=== PATIENT | female | born 1970 | race Caucasian/White ===

== ENCOUNTER 2025-03-13 23:43 | Inpatient (IN) | payer BC, OTHER ==
[~2025-03-13] VITALS: Ht 170.2 cm; Wt 75.0 kg
[2025-03-14] VITALS (8 sets, daily range): BP systolic 120–139; BP diastolic 73–87; PULSE 68–77; RESP 15–20; TEMP 97.3–98.2; O2SAT 95–98
[2025-03-14] MEDS ORDERED: ONDANSETRON HCL 4 MG/2 ML VIAL IV ONE (00:15)
[2025-03-14] MEDS ORDERED: HYDROmorphone HCL 2 MG/ML VL/or syr IV ONE (00:15)
--- NOTE | 2025-03-14 00:23 | ED.PDOC ---
GI ASSESSMENT HPI Comments 54-year-old female who came to the ER for abdominal pain. Patient has been experiencing abdominal pain for the past day. Located of the right upper quadrant, sharp, stabbing, intermittent, progressively worsening, associated bouts of nausea and vomiting. 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 Family History Family History: Reviewed,noncontributory to illness Social History Smoker: Non-Smoker Alcohol: Denies ETOH Use Drugs: Denies Drug Use Lives In: Home Constitutional: denies: chills, diaphoresis, fatigue, fever, malaise, sweats, weakness, others EENTM: denies: blurred vision, double vision, ear bleeding, ear discharge, ear drainage, ear pain, ear ringing, eye pain, eye redness, hearing loss, mouth pain, mouth swelling, nasal discharge, nose bleeding, nose congestion, nose pain, photophobia, tearing, throat pain, throat swelling, voice changes, others Respiratory: denies: cough, hemoptysis, orthopnea, SOB at rest, shortness of breath, SOB with excertion, stridor, wheezing, others Cardiovascular: denies: chest pain, dizzy spells, diaphoresis, Dyspnea on exertion, edema, irregular heart beat, left arm pain, lightheadedness, palpitations, PND, syncope, others Gastrointestinal: reports: abdominal pain, nausea, vomiting; denies: abdomen distended, blood streaked bowels, constipated, diarrhea, dysphagia, difficulty swallowing, hematemesis, melena, poor appetite, poor fluid intake, rectal bleeding, rectal pain, others Genitourinary: denies: abnormal vagina bleeding, burning, dyspareunia, dysuria, flank pain, frequency, hematuria, incontinence, pain, , vagina discharge, urgency, others Neurological: denies: dizziness, fainting, headache, left sided numbness, left sided weakness, numbness, paresthesia, pre-existing deficit, right sided numbness, right sided weakness, seizure, speech problems, tingling, tremors, weakness, others Musculoskeletal: denies: back pain, gout, joint pain, joint swelling, muscle pain, muscle stiffness, neck pain, others Integumetry: denies: bruises, change in color, change in hair/nails, dryness, laceration, lesions, lumps, rash, wounds, others Allergic/Immunocompromised: denies: Difficulty Healing, Frequent Infections, Hives, Itching, others Hematologic/Lymphatic: denies: anemia, blood clots, easy bleeding, easy bruising, swollen glands, others Endocrine: denies: excessive hunger, excessive sweating, excessive thirst, excessive urination, flushing, intolerance to cold, intolerance to heat, unexplained weight gain, unexplained weight loss, others Psychiatric: denies: anxiety, bipolar disorder, depression, hopeless, panic disorder, schizophrenia, sleepless, suicidal, others Physical Exam General Appearance: No Apparent Distress, Normal HEENT: Normal ENT Inspection, Pharynx Normal, TMs Normal Neck: Full Range of Motion, Non-Tender, Normal, Normal Inspection Respiratory: Chest Non-Tender, Lungs Clear, No Accessory Muscle Use, No Respiratory Distress, Normal Breath Sounds Cardiovascular: No Edema, No JVD, No Murmur, No Gallop, Normal Peripheral Pulses, Regular Rate/Rhythm Breast Exam: Deferred Gastrointestinal: No Organomegaly, No Pulsatile Mass, Normal Bowel Sounds, RUQ, Soft, Tenderness Genitalia: Deferred Pelvic: Deferred Rectal: Deferred Extremities: No calf tenderness, Normal capillary refill, Normal inspection, Normal range of motion, Non-tender, No pedal edema Musculoskeletal : Apperance: Normal Neurologic: Alert, crane assembler II-XII nml as Tested, No Motor Deficits, Normal Affect, Normal Mood, No Sensory Deficits Cerebellar Function: Normal Reflexes: Normal Skin: Dry, Normal Color, Warm Lymphatic: No Adenopathy Was a procedure done? Was a procedure done?: No GI differential Dx Differential Diagnosis: Cholecystitis, Constipation, Diverticular disease, Gastritis/PUD, Gastroenteritis, Hepatitis, Pancreatitis, UTI, Urolithiasis X-Ray, Labs, Meds, VS Vital Signs Date Time Temp Pulse Resp B/P (MAP) Pulse Ox O2 Delivery O2 Flow Rate FiO2 03/13/25 23:45 96.7 73 20 142/88 98 96.7 Lab Test 03/14/25 00:20 03/13/25 23:55 Range/Units White Blood Count 5.5 4.4-10.8 10^3/uL Red Blood Count 4.17 4.0-5.20 10^6/uL Hemoglobin 13.9 12.2-16.2 g/dL Hematocrit 39.5 36.0-46.0 % Mean Corpuscular Volume 94.8 80.0-100.0 fL Mean Corpuscular Hemoglobin 33.3 H 28.0-32.0 pg Mean Corpuscular Hemoglobin Concent 35.2 32.0-36.0 g/dL Red Cell Distribution Width 12.7 11.8-14.3 % Platelet Count 201 140-450 10^3/uL Mean Platelet Volume 6.1 L 6.9-10.8 fL Neutrophils (%) (Auto) 71.0 37.0-80.0 % Lymphocytes (%) (Auto) 17.8 10.0-50.0 % Monocytes (%) (Auto) 8.4 0.0-12.0 % Eosinophils (%) (Auto) 2.3 0.0-7.0 % Basophils (%) (Auto) 0.5 0.0-2.0 % Neutrophils # (Auto) 3.9 1.6-8.6 10 ^3/uL Lymphocytes # (Auto) 1.0 0.4-5.4 10 ^3/uL Monocytes # (Auto) 0.5 0-1.3 10 ^3/uL Eosinophils # (Auto) 0.1 0-0.8 10 ^3/uL Basophils # (Auto) 0 0-0.2 10 ^3/uL Nucleated Red Blood Cells 0.0 % Sodium Level 143 136-145 mmol/L Potassium Level 4.0 3.5-5.1 mmol/L Chloride Level 104 98-107 mmol/L Carbon Dioxide Level 28 20-31 mmol/L Anion Gap 11 5-15 Blood Urea Nitrogen 6 L 9-23 mg/dL Creatinine 0.65 0.550-1.02 mg/dL Glomerular Filtration Rate Calc 103 >90 mL/min BUN/Creatinine Ratio 9.2 L 10.0-20.0 Serum Glucose 169 H 74-106 mg/dL Calcium Level 9.2 8.7-10.4 mg/dL Total Bilirubin 1.0 0.2-1.0 mg/dL Aspartate Amino Transferase (AST) 494 H 13-40 U/L Alanine Aminotransferase (ALT) 899 H 7-40 U/L Alkaline Phosphatase 359 H 46-116 U/L Total Protein 6.7 5.7-8.2 g/dL Albumin 4.0 3.2-4.8 g/dL Lipase 46 12-53 U/L Urine Color Yellow Yellow Urine Clarity Clear Clear Urine pH 7.0 5.0-9.0 Urine Specific [place] 1.015 1.001-1.035 Urine Protein Negative Negative Urine Ketones Negative Negative Urine Blood 2+ H Negative /uL Urine Nitrite Negative Negative Urine Bilirubin Negative Negative Urine Urobilinogen Normal Negative mg/dL Urine Leukocyte Esterase Negative Negative /uL Urine RBC 13 0 - 4 /hpf Urine Microscopic WBC < 1 0-5 /HPF Urine Squamous Epithelial Cells Few <5 /hpf Urine Bacteria Few H None Seen /hpf Urine Hyaline Casts Few 0 - 2 /lpf Urine Mucus Few None Seen Urine Yeast (Budding) Occasional None Seen /hpf Urine Glucose Normal Normal mg/dL Time of 1ST Reevaluation: 00:20 Reevaluation 1ST: Unchanged Patient Education/Counseling: Diagnosis, Treatment Family Education/Counseling: Diagnosis, Treatment SEPSIS Sepsis Screen Date sepsis recognized/suspect: Mar 13, 2025 Time Sepsis recognized/suspect: 2349 Recent Procedure: No On Antibiotic Therapy: No Respiratory Rate >20: No Heart Rate >90: No Temp<36 C (96.8 F) or >38.3 C: No SBP <90 or MAP <65 mmHG: No New Acute Mental Status Change: No Is the patient on CPAP, BIPAP,: No Physician Orders Gallbladder (03/14/25 00:03) Piperacillin-Tazob 3.375gm (Zosyn 3.375g (03/14/25 03:00) Vital Signs Date Time Temp Pulse Resp B/P (MAP) Pulse Ox O2 Delivery O2 Flow Rate FiO2 03/13/25 23:45 96.7 73 20 142/88 98 96.7 Laboratory Tests Test 03/14/25 00:20 White Blood Count 5.5 10^3/uL (4.4-10.8) Departure 1 Departure Time of Disposition: 03:02 Impression: Primary Impression: Acute cholecystitis Disposition: ADMITTED INPATIENT Admit to: Med Surg Condition: Guarded Discharged With: Self Comments 54-year-old female with a severe right upper quadrant pain. On lab review her LFTs are quite elevated. Total bilirubin is okay at 1. AST is high at 494. ALT is high at 899. Alk-phos is high at 359. Ultrasound of the gallbladder shows gallstones and signs of acute cholecystitis. I ordered IV Zosyn antibiotics. Patient got Dilaudid for pain. Patient will need to be admitted for supportive care and further workup. Critical Care Note Critical Care Time?: Yes (35 min-critical care time only) Critical care comment: Total critical care time: Approximately 36 minutes Due to a high probability of clinically significant, life threatening deterioration, the patient required my highest level of preparedness to intervene emergently and I personally spent this critical care time directly and personally managing the patient. This critical care time included obtaining a history; examining the patient; pulse oximetry; ordering and review of studies; arranging urgent treatment with development of a management plan; evaluation of patient's response to treatment; frequent reassessment; and, discussions with other providers. This critical care time was performed to assess and manage the high probability of imminent, life-threatening deterioration that could result in multi-organ failure. It was exclusive of separately billable procedures and treating other patients. Stability Stability form required: No Heart Score Heart Score: Heart Score Response (Comments) Value History N/A 0 EKG N/A 0 Age N/A 0 Risk Factors N/A 0 Troponin N/A 0 Total 0 I personally scribed for SERGEI SLOAN MD ([email or web address]) on 03/14/25 at 00:23. Electronically submitted by Natalio Dennison ([email or web address]). SERGEI SLOAN MD Mar 14, 2025 00:23
[2025-03-14 00:39] LABS: Hematocrit 39.5 % (36.0-46.0); Hemoglobin 13.9 g/dL (12.2-16.2); Mean Corpuscular Hemoglobin 33.3 pg (28.0-32.0); Mean Corpuscular Volume 94.8 fL (80.0-100.0); Nucleated Red Blood Cells % 0.0 %
[2025-03-14 01:07] LABS: Albumin 4.0 g/dL (3.2-4.8); Anion Gap 11 (5-15); BUN/Creatinine Ratio 9.2 (10.0-20.0); Bilirubin, Total 1.0 mg/dL (0.2-1.0); Calcium 9.2 mg/dL (8.7-10.4); Carbon Dioxide 28 mmol/L (20-31); Chloride 104 mmol/L (98-107); Lipase 46 U/L (12-53); Potassium 4.0 mmol/L (3.5-5.1); Sodium 143 mmol/L (136-145); Total Protein 6.7 g/dL (5.7-8.2)
--- NOTE | 2025-03-14 01:08 | DVH ---
INDICATION: RUQ pain TECHNIQUE: Multiple real-time sonographic images were obtained of the right upper quadrant. COMPARISON: None FINDINGS: Liver is enlarged measuring 19.3 cm with moderate diffuse fatty infiltration. There is no intrahepati c or extrahepatic ductal dilatation. CBD is dilated measuring 1.2 cm. Gallstone in the gallbladder. Borderline gallbladder distention. Gallbladder wall is mildly thickened measuring 0.5 cm. No surrounding edema. Sonographic leos's sign is positive. The right kidney measures 10.0 cm. The right kidney is normal in contour, size, and shape. The ech ogenicity is normal. There is no hydronephrosis. The pancreas is not well visualized due to overlying bowel gas. IMPRESSION: CBD is dilated. MRCP would be beneficial to exclude a distal obstructing calculus. Gallstones with gallbladder distension and borderline gallbladder wall thickening but no significant surrounding edema. This could represent early acute cholecystitis. Close follow-up recommended.
[2025-03-14 01:09] LABS: Alanine Aminotransferase 899 U/L (7-40); Alkaline Phosphatase 359 U/L (46-116); Blood Urea Nitrogen 6 mg/dL (9-23); Glucose 169 mg/dL (74-106)
[2025-03-14 02:16] LABS: Urine Budding Yeast OCCASIONAL /hpf (None Seen); Urine Protein, UAD Negative (Negative)
[2025-03-14] MEDS ORDERED: NITROGLYCERIN 0.4 MG SL TAB SL PRN (04:45)
[2025-03-14] MEDS ORDERED: MORPHINE SULFATE INJ 2 MG/ml SYRG IV PRN (04:45)
[2025-03-14] MEDS ORDERED: HYDROcodone-ACET 5/325MG TAB PO PRN (04:45)
[2025-03-14] MEDS ORDERED: ACETAMINOPHEN 325 MG TAB PO PRN (04:45)
[2025-03-14] MEDS ORDERED: HYDROmorphone HCL 2 MG/ML VL/or syr IV PRN (04:45)
--- NOTE | 2025-03-14 04:45 | DVHHP2 ---
History of Present Illness Reason for Visit: Acute cholecystitis History of Present Illness The patient is a 54-year-old female who denies past medical history presented to [facility] ED with complaint of abdominal pain. Patient reports she has been experiencing abdominal pain, localized to the right upper quadrant, sharp and stabbing in nature, intermittent, progressively worsening, associated with bouts of nausea and vomiting. Patient was seen and evaluated in the ED, laboratory data shows WBC 5.5, platelets 201, sodium 143, potassium 4.0, BUN 6, creatinine 0.65, GFR 103, glucose 189, calcium 9.2, lipase 42, AST 494, ALT 899, alkaline phos 359, blood pressure 142/88, heart rate 72, temperature 96.7 F, O2 saturation 98% on room air. Gallbladder ultrasound revealing gallstones with gallbladder distention and borderline gallbladder wall thickening but no significant surrounding edema; this could represent early acute cholecystitis; CBD is dilated, MRCP will be beneficial to exclude a distal obstructing calculus. Please see medication orders section in the computer. On my assessment, patient denied chest pain, no headache, dizziness, diaphoresis, shortness of breaths, no diarrhea, nausea or vomiting at this moment, no fever, chills. Patient was admitted for further evaluation and medical management. Past Medical History Denies past medical history Past Surgical History Family History Reviewed, noncontributory to the management of this case. Past Social History The patient lives at home, denies smoking, alcohol or illicit drugs abuse. Review of Systems Constitutional: No: Fever, Chills, Sweats, Weakness, Malaise, Other Eyes: No: Pain, Vision change, Conjunctivae inflammation, Eyelid inflammation, Other, Redness ENT: No: Ear pain, Ear discharge, Nose pain, Nose discharge, Nose congestion, Mouth pain, Mouth swelling, Throat pain, Throat swelling, Other Respiratory: No: Cough, Dry, Shortness of breath, SOB with excertion, Wheezing, Hemoptysis, Pleuritic Pain, Sputum, Wheezing, Other Cardiovascular: No: Chest Pain, Palpitations, Orthopnea, Paroxysmal Noc. Dyspnea, Edema, Lt Headedness, Other Gastrointestinal: Nausea, Vomiting, Abdominal Pain; No: Diarrhea, Constipation, Melena, Hematochezia, Other Genitourinary: No Dysuria, No Frequency, No Incontinence, No Hematuria, No Retention, No Other Musculoskeletal: No: other, neck pain, shoulder pain, arm pain, back pain, hand pain, leg pain, foot pain Skin: No: Rash, Lesions, Jaundice, Bruising, Other Neurological: No: Weakness, Numbness, Incoordination, Change in speech, Confusion, Seizures, Other Allergies: Coded Allergies: Penicillins (Verified Allergy, Unknown, 03/13/25) Medications Current Medications Medications Dose Ordered Sig/Leigh Route Start Time Stop Time Status Last Admin Dose Admin Hydromorphone HCl 0.5 mg Q4HPRN PRN IV 03/14/25 04:45 UNV Metronidazole 100 ml @ 100 mls/hr Q8HR IV 03/14/25 06:00 UNV Sodium Chloride 10 ml Q8HR IV 03/14/25 06:00 UNV Acetaminophen/ Hydrocodone Bitart 1 tab Q4HP PRN PO 03/14/25 04:45 UNV Ondansetron HCl 4 mg Q4HP PRN IV 03/14/25 04:45 UNV Acetaminophen 650 mg Q6HP PRN PO 03/14/25 04:45 UNV Nitroglycerin 0.4 mg Q5MINP PRN SL 03/14/25 04:45 UNV Morphine Sulfate 2 mg Q30M PRN IV 03/14/25 04:45 UNV Exam Vital Signs Vital Signs Date Time Temp Pulse Resp B/P (MAP) Pulse Ox O2 Delivery O2 Flow Rate FiO2 03/13/25 23:45 96.7 73 20 142/88 98 96.7 General Appearance: Alert, Oriented X3, Cooperative, No acute distress HEENT: Atraumatic, PERRLA, EOMI, Mucous membr. moist/pink Respiratory: Clear to auscultation, Normal air movement Cardiovascular: Regular rate, Normal S1, Normal S2, No murmurs Abdominal: Normal bowel sounds, Soft, No hepatospenomegaly, No masses, Other (Reports tenderness) Extremities: No clubbing, No cyanosis, No edema, Normal pulses, No tenderness/swelling Skin: No rashes, No breakdown, No significant lesion Neuro: Normal gait, Normal speech, Strength at 5/5 X4 ext, Normal tone, Sensation intact, Cranial nerves 3-12 NL, Reflexes 2+ Psych/Mental Status: Mental status NL, Mood NL Labs/Xrays Labs Test 03/14/25 00:20 03/13/25 23:55 Range/Units White Blood Count 5.5 4.4-10.8 10^3/uL Red Blood Count 4.17 4.0-5.20 10^6/uL Hemoglobin 13.9 12.2-16.2 g/dL Hematocrit 39.5 36.0-46.0 % Mean Corpuscular Volume 94.8 80.0-100.0 fL Mean Corpuscular Hemoglobin 33.3 H 28.0-32.0 pg Mean Corpuscular Hemoglobin Concent 35.2 32.0-36.0 g/dL Red Cell Distribution Width 12.7 11.8-14.3 % Platelet Count 201 140-450 10^3/uL Mean Platelet Volume 6.1 L 6.9-10.8 fL Neutrophils (%) (Auto) 71.0 37.0-80.0 % Lymphocytes (%) (Auto) 17.8 10.0-50.0 % Monocytes (%) (Auto) 8.4 0.0-12.0 % Eosinophils (%) (Auto) 2.3 0.0-7.0 % Basophils (%) (Auto) 0.5 0.0-2.0 % Neutrophils # (Auto) 3.9 1.6-8.6 10 ^3/uL Lymphocytes # (Auto) 1.0 0.4-5.4 10 ^3/uL Monocytes # (Auto) 0.5 0-1.3 10 ^3/uL Eosinophils # (Auto) 0.1 0-0.8 10 ^3/uL Basophils # (Auto) 0 0-0.2 10 ^3/uL Nucleated Red Blood Cells 0.0 % Sodium Level 143 136-145 mmol/L Potassium Level 4.0 3.5-5.1 mmol/L Chloride Level 104 98-107 mmol/L Carbon Dioxide Level 28 20-31 mmol/L Anion Gap 11 5-15 Blood Urea Nitrogen 6 L 9-23 mg/dL Creatinine 0.65 0.550-1.02 mg/dL Glomerular Filtration Rate Calc 103 >90 mL/min BUN/Creatinine Ratio 9.2 L 10.0-20.0 Serum Glucose 169 H 74-106 mg/dL Calcium Level 9.2 8.7-10.4 mg/dL Total Bilirubin 1.0 0.2-1.0 mg/dL Aspartate Amino Transferase (AST) 494 H 13-40 U/L Alanine Aminotransferase (ALT) 899 H 7-40 U/L Alkaline Phosphatase 359 H 46-116 U/L Total Protein 6.7 5.7-8.2 g/dL Albumin 4.0 3.2-4.8 g/dL Lipase 46 12-53 U/L Urine Color Yellow Yellow Urine Clarity Clear Clear Urine pH 7.0 5.0-9.0 Urine Specific [place] 1.015 1.001-1.035 Urine Protein Negative Negative Urine Ketones Negative Negative Urine Blood 2+ H Negative /uL Urine Nitrite Negative Negative Urine Bilirubin Negative Negative Urine Urobilinogen Normal Negative mg/dL Urine Leukocyte Esterase Negative Negative /uL Urine RBC 13 0 - 4 /hpf Urine Microscopic WBC < 1 0-5 /HPF Urine Squamous Epithelial Cells Few <5 /hpf Urine Bacteria Few H None Seen /hpf Urine Hyaline Casts Few 0 - 2 /lpf Urine Mucus Few None Seen Urine Yeast (Budding) Occasional None Seen /hpf Urine Glucose Normal Normal mg/dL PATIENT: COLETTE CARRENO ACCT: [id number] UNIT: [id number] : 1970 LOC: ER ROOM / BED: / AGE / SEX: 54 / F ADM STATUS: REG ER SERVICE 0003 ORDERING PHYSICIAN: SERGEI SLOAN MD PROCEDURE(s): GBUS - GALLBLADDER REASON: RUQ pain ORDER NUMBER(s): [id number], ACCESSION NUMBER(s): [id number] INDICATION: RUQ pain TECHNIQUE: Multiple real-time sonographic images were obtained of the right upper quadrant. COMPARISON: None FINDINGS: Liver is enlarged measuring 19.3 cm with moderate diffuse fatty infiltration. There is no intrahepatic or extrahepatic ductal dilatation. CBD is dilated measuring 1.2 cm. Gallstone in the gallbladder. Borderline gallbladder distention. Gallbladder wall is mildly thickened measuring 0.5 cm. No surrounding edema. Sonographic leos's sign is positive. The right kidney measures 10.0 cm. The right kidney is normal in contour, size, and shape. The echogenicity is normal. There is no hydronephrosis. The pancreas is not well visualized due to overlying bowel gas. IMPRESSION: CBD is dilated. MRCP would be beneficial to exclude a distal obstructing calculus. Gallstones with gallbladder distension and borderline gallbladder wall thickening but no significant surrounding edema. This could represent early acute cholecystitis. Close follow-up recommended. SEPSIS Sepsis Screen Date sepsis recognized/suspect: Mar 13, 2025 Time Sepsis recognized/suspect: 2349 Recent Procedure: No On Antibiotic Therapy: No Respiratory Rate >20: No Heart Rate >90: No Temp<36 C (96.8 F) or >38.3 C: No SBP <90 or MAP <65 mmHG: No New Acute Mental Status Change: No Is the patient on CPAP, BIPAP,: No Physician Orders Gallbladder (03/14/25 00:03) * Gi Dvh Topper Packer (03/14/25 04:35) Complete Blood Count (03/14/25 04:35) Comprehensive Metabolic Panel (03/14/25 04:35) Hydromorphone Injection (Dilaudid Inject (03/14/25 04:45) Metronidazole 500mg/100ml (Flagyl 500mg/ (03/14/25 06:00) Hemoglobin A1c (03/14/25 04:35) * Surgical Consult (03/14/25 ) Admit (03/14/25 04:35) Allergies (03/14/25 04:35) Code Status (03/14/25 04:35) Sodium Chloride Lock (Saline Lock Ns) (03/14/25 06:00) Oxygen Per Hour (03/14/25 04:35) Hydrocodone-Acet 5/325mg Tab ([place] 5/32 (03/14/25 04:45) Ondansetron Hcl (Zofran) (03/14/25 04:45) Complete Blood Count (03/15/25 04:00) Comprehensive Metabolic Panel (03/15/25 04:00) Condition: Serious (03/14/25 04:35) Acetaminophen Tablet (Tylenol Tablet) (03/14/25 04:45) Clear Liq Diet (03/14/25 Breakfast) Bedrest With Bathroom Privileg (03/14/25 04:35) Sequential Compression Device (03/14/25 ) Nitroglycerin Sublingual (Ntrostat Subli (03/14/25 04:45) Morphine Sulfate Injection (03/14/25 04:45) Notify Md Of Changes From Base (03/14/25 04:35) Emergency Dysrhythmia Protocol (03/14/25 04:35) Oxygen By Nasal Cannula (03/14/25 04:35) Vital Signs Date Time Temp Pulse Resp B/P (MAP) Pulse Ox O2 Delivery O2 Flow Rate FiO2 03/13/25 23:45 96.7 73 20 142/88 98 96.7 Laboratory Tests Test 03/14/25 00:20 White Blood Count 5.5 10^3/uL (4.4-10.8) Assessment/Plan Assessment/Plan Acute cholecystitis Hyperglycemia Elevated liver enzymes Acute abdominal pain Intractable nausea and vomiting Plan 1. Admit to med surge unit 2. Breathing treatment 3. Pain control management 4. IV antibiotic management 5. Management of fluids and electrolytes 6. Consultation for GI/surgery 7. Diagnostic test gallbladder ultrasound 8. DVT prophylaxis-on SCDs 9. Repeat labs CBC, CMP in a.m. 10. Continue with current medical management 11. Treatment plan discussed with patient/ and RN. Patient/ verbalized understanding. Plan discussed with: Patient, Spouse ( at bedside), Other (RN) My Orders Orders - WESTON CACERES DNP Procedure Category Date Status Time * Gi Dvh Topper Packer CONS 03/14/25 Transmitted 04:35 Complete Blood Count LAB 03/14/25 Logged 04:35 Comprehensive LAB 03/14/25 Logged Metabolic Panel 04:35 Hydromorphone PHA 03/14/25 Logged Injection (Dilaudid 04:45 Metronidazole PHA 03/14/25 Logged 500mg/100ml (Flagyl 06:00 Hemoglobin A1c LAB 03/14/25 Logged 04:35 * Surgical Consult CONS 03/14/25 Transmitted Admit ADMIT 03/14/25 Transmitted 04:35 Allergies RONNELL 03/14/25 In Process 04:35 Code Status CODE 03/14/25 Transmitted 04:35 Sodium Chloride Lock PHA 03/14/25 Logged (Saline Lock Ns) 06:00 Oxygen Per Hour RT 03/14/25 Transmitted 04:35 Hydrocodone-Acet PHA 03/14/25 Logged 5/325mg Tab ([place] 04:45 Ondansetron Hcl PHA 03/14/25 Logged (Zofran) 04:45 Complete Blood Count LAB 03/15/25 Verified 04:00 Comprehensive LAB 03/15/25 Verified Metabolic Panel 04:00 Condition: Serious RONNELL 03/14/25 In Process 04:35 Acetaminophen Tablet PHA 03/14/25 Logged (Tylenol Tablet) 04:45 Clear Liq Diet DIET 03/14/25 Transmitted Breakfast Bedrest With Bathroom [facility] 03/14/25 In Process Privileg 04:35 Sequential [facility] 03/14/25 In Process Compression Device Nitroglycerin [facility] 03/14/25 Logged Sublingual (Ntrostat 04:45 Morphine Sulfate [facility] 03/14/25 Logged Injection 04:45 Notify Md Of Changes [facility] 03/14/25 In Process From Base 04:35 Emergency Dysrhythmia [facility] 03/14/25 In Process Protocol 04:35 Oxygen By Nasal RT 03/14/25 Transmitted Cannula 04:35 Problem List: (1) Acute cholecystitis (2) Hyperglycemia (3) Elevated liver enzymes (4) Acute abdominal pain (5) Intractable nausea and vomiting Date of Service: Mar 14, 2025 Billing Provider: WESTON CACERES DNP Common Visit Codes: [id number] INP/OBS CARE (HIGH) WESTON CACERES DNP Mar 14, 2025 04:45
[2025-03-14] MEDS: SODIUM CHLOR 0.9% PF (SALINE LOCK) 10ML VIAL/SYR IV SCH (06:25)
[2025-03-14] MEDS: PIPERACILLIN-TAZOB 3.375GM 100 ML IV ONE (06:25)
[2025-03-14] MEDS: SODIUM CHLORIDE 0.9% 1,000 ML IVB ONE (06:51)
[2025-03-14] MEDS ORDERED: THYR120T PO (06:54)
[2025-03-14] MEDS ORDERED: VALS320T PO (06:54)
[2025-03-14] MEDS ORDERED: ESCI10TA PO (06:54)
[2025-03-14 08:03] LABS: Hematocrit 41.9 % (36.0-46.0); Hemoglobin 14.5 g/dL (12.2-16.2); Mean Corpuscular Hemoglobin 33.1 pg (28.0-32.0); Mean Corpuscular Volume 95.5 fL (80.0-100.0); Nucleated Red Blood Cells % 0.1 %
[2025-03-14 08:20] LABS: Alanine Aminotransferase 903 U/L (7-40); Albumin 4.0 g/dL (3.2-4.8); Alkaline Phosphatase 434 U/L (46-116); Anion Gap 12 (5-15); BUN/Creatinine Ratio 19.4 (10.0-20.0); Blood Urea Nitrogen 12 mg/dL (9-23); Calcium 8.7 mg/dL (8.7-10.4); Carbon Dioxide 27 mmol/L (20-31); Chloride 106 mmol/L (98-107); Glucose 91 mg/dL (74-106); Potassium 3.9 mmol/L (3.5-5.1); Sodium 145 mmol/L (136-145); Total Protein 6.6 g/dL (5.7-8.2)
[2025-03-14 08:21] LABS: Bilirubin, Total 1.2 mg/dL (0.2-1.0)
--- NOTE | 2025-03-14 10:23 | DVHINCON2 ---
Date of service: Mar 14, 2025 Allergies: Coded Allergies: Penicillins (Verified Allergy, Unknown, 03/13/25) Home Meds Reported Medications Escitalopram Oxalate (Lexapro) 10 Mg Tab, 1 TAB PO DAILY, #90 TAB 3 Refills 03/14/25 Thyroid ([place] Thyroid) 120 Mg Tab, 120 MG PO, TAB 03/14/25 Valsartan (Diovan) Unknown Strength Tab, PO DAILY, #90 TAB 3 Refills 03/14/25 Current Medications Current Medications Medications (Trade) Dose Ordered Sig/Leigh Route PRN Reason Start Time Stop Time Status Last Admin Hydromorphone HCl (Dilaudid Injection) 0.5 mg Q4HPRN PRN IV SEVERE PAIN (7-10 PAIN SCALE) 03/14/25 04:45 Metronidazole 100 ml @ 100 mls/hr Q8HR IV 03/14/25 06:00 03/14/25 06:25 Sodium Chloride (Saline Lock Ns) 10 ml Q8HR IV 03/14/25 06:00 03/14/25 06:25 Acetaminophen/ Hydrocodone Bitart ([place] 5/325MG Tab) 1 tab Q4HP PRN PO MODERATE PAIN (4-6 PAIN SCALE) 03/14/25 04:45 Ondansetron HCl (Zofran) 4 mg Q4HP PRN IV NAUSEA / VOMITING 03/14/25 04:45 Acetaminophen (Tylenol Tablet) 650 mg Q6HP PRN PO PAIN SCALE 1-3 OR TEMP>100.4 03/14/25 04:45 Nitroglycerin (Ntrostat Sublingual) 0.4 mg Q5MINP PRN SL FOR CHEST PAIN 03/14/25 04:45 Morphine Sulfate 2 mg Q30M PRN IV FOR CHEST PAIN 03/14/25 04:45 Potassium Chloride/Dextrose/ Sod Cl 1,000 ml @ 120 mls/hr Q8H20M IV 03/14/25 10:15 UNV Vital Signs Vital Signs Date Time Temp Pulse Resp B/P (MAP) Pulse Ox O2 Delivery O2 Flow Rate FiO2 03/14/25 09:11 97.8 77 18 134/76 (95) 98 97.8 03/14/25 08:00 Room Air* 0 21 Labs/Diagnostic Data Labs Test 03/14/25 07:30 03/14/25 00:20 03/13/25 23:55 Range/Units White Blood Count 5.3 4.4-10.8 10^3/uL Red Blood Count 4.38 4.0-5.20 10^6/uL Hemoglobin 14.5 12.2-16.2 g/dL Hematocrit 41.9 36.0-46.0 % Mean Corpuscular Volume 95.5 80.0-100.0 fL Mean Corpuscular Hemoglobin 33.1 H 28.0-32.0 pg Mean Corpuscular Hemoglobin Concent 34.7 32.0-36.0 g/dL Red Cell Distribution Width 12.8 11.8-14.3 % Platelet Count 180 140-450 10^3/uL Mean Platelet Volume 6.4 L 6.9-10.8 fL Neutrophils (%) (Auto) 70.9 37.0-80.0 % Lymphocytes (%) (Auto) 15.8 10.0-50.0 % Monocytes (%) (Auto) 10.9 0.0-12.0 % Eosinophils (%) (Auto) 1.8 0.0-7.0 % Basophils (%) (Auto) 0.6 0.0-2.0 % Neutrophils # (Auto) 3.8 1.6-8.6 10 ^3/uL Lymphocytes # (Auto) 0.8 0.4-5.4 10 ^3/uL Monocytes # (Auto) 0.6 0-1.3 10 ^3/uL Eosinophils # (Auto) 0.1 0-0.8 10 ^3/uL Basophils # (Auto) 0 0-0.2 10 ^3/uL Nucleated Red Blood Cells 0.1 % Sodium Level 145 136-145 mmol/L Potassium Level 3.9 3.5-5.1 mmol/L Chloride Level 106 98-107 mmol/L Carbon Dioxide Level 27 20-31 mmol/L Anion Gap 12 5-15 Blood Urea Nitrogen 12 9-23 mg/dL Creatinine 0.62 0.550-1.02 mg/dL Glomerular Filtration Rate Calc 104 >90 mL/min BUN/Creatinine Ratio 19.4 10.0-20.0 Serum Glucose 91 74-106 mg/dL Calcium Level 8.7 8.7-10.4 mg/dL Total Bilirubin 1.2 H 0.2-1.0 mg/dL Aspartate Amino Transferase (AST) 449 H 13-40 U/L Alanine Aminotransferase (ALT) 903 H 7-40 U/L Alkaline Phosphatase 434 H 46-116 U/L Total Protein 6.6 5.7-8.2 g/dL Albumin 4.0 3.2-4.8 g/dL Hemoglobin A1c 4.8 <5.7 % A1C Lipase 46 12-53 U/L Urine Color Yellow Yellow Urine Clarity Clear Clear Urine pH 7.0 5.0-9.0 Urine Specific [place] 1.015 1.001-1.035 Urine Protein Negative Negative Urine Ketones Negative Negative Urine Blood 2+ H Negative /uL Urine Nitrite Negative Negative Urine Bilirubin Negative Negative Urine Urobilinogen Normal Negative mg/dL Urine Leukocyte Esterase Negative Negative /uL Urine RBC 13 0 - 4 /hpf Urine Microscopic WBC < 1 0-5 /HPF Urine Squamous Epithelial Cells Few <5 /hpf Urine Bacteria Few H None Seen /hpf Urine Hyaline Casts Few 0 - 2 /lpf Urine Mucus Few None Seen Urine Yeast (Budding) Occasional None Seen /hpf Urine Glucose Normal Normal mg/dL Assessment 54 year old female with several days of abdominal pain and naqusea, tender right upper quadrant, dilated CBD and elevated LFT's. she has been alloweed to have po diet till now, needs NPO, IV fluids, antibiotics and MRCP to r/o CBD stone. Plan discussed with: Patient CARLOZ JOYA MD Mar 14, 2025 10:23
[2025-03-14] MEDS: ONDANSETRON HCL 4 MG/2 ML VIAL IV PRN (10:39)
[2025-03-14] MEDS: D5W/SOD CHL 0.45%/KCL 20MEQ 1,000 ML IV SCH (10:50)
[2025-03-14 12:03] LABS: INR 0.94 (0.9-1.15); Partial Thromboplastin Time 21.1 SEC (24.5-34.5); Prothrombin Time 10.0 sec (9.3-11.8)
--- NOTE | 2025-03-14 13:48 | DVHPN2 ---
Reviewed: Care Plan, H&P, Labs, Medications, Previous Orders, Radiology Changes from previous H/P or p: No Changes Eyes: No Pain, No Vision change, No Conjunctivae inflammation, No Eyelid inflammation, No Other, No Redness ENT: No Ear pain, No Ear discharge, No Nose pain, No Nose discharge, No Nose congestion, No Mouth pain, No Mouth swelling, No Throat pain, No Throat swelling, No Other Cardiovascular: No Chest Pain, No Palpitations, No Orthopnea, No Paroxysmal Noc. Dyspnea, No Edema, No Lt Headedness, No Other Respiratory: No Cough, No Dry, No Shortness of breath, No SOB with excertion, No Wheezing, No Hemoptysis, No Pleuritic Pain, No Sputum, No Other Gastrointestinal: Nausea, Vomiting, Abdominal Pain; No Diarrhea, No Constipation, No Melena, No Hematochezia, No Other Genitourinary: No Dysuria, No Frequency, No Incontinence, No Hematuria, No Retention, No Other Musculoskeletal: No other, No neck pain, No shoulder pain, No arm pain, No back pain, No hand pain, No leg pain, No foot pain Skin: No Rash, No Lesions, No Jaundice, No Bruising, No Other Objective Vitals Vital Signs Date Time Temp Pulse Resp B/P (MAP) Pulse Ox O2 Delivery O2 Flow Rate FiO2 03/14/25 13:00 97.9 72 20 138/87 (104) 96 97.9 03/14/25 12:42 Room Air* 0 21 Medications Current Medications Medications Dose Ordered Sig/Leigh Route Start Time Stop Time Status Last Admin Dose Admin Hydromorphone HCl 0.5 mg Q4HPRN PRN IV 03/14/25 04:45 Metronidazole 100 ml @ 100 mls/hr Q8HR IV 03/14/25 06:00 03/14/25 06:25 100 MLS/HR Sodium Chloride 10 ml Q8HR IV 03/14/25 06:00 03/14/25 06:25 10 ML Acetaminophen/ Hydrocodone Bitart 1 tab Q4HP PRN PO 03/14/25 04:45 Ondansetron HCl 4 mg Q4HP PRN IV 03/14/25 04:45 03/14/25 10:39 4 MG Acetaminophen 650 mg Q6HP PRN PO 03/14/25 04:45 Nitroglycerin 0.4 mg Q5MINP PRN SL 03/14/25 04:45 Morphine Sulfate 2 mg Q30M PRN IV 03/14/25 04:45 Potassium Chloride/Dextrose/ Sod Cl 1,000 ml @ 120 mls/hr Q8H20M IV 03/14/25 10:15 03/14/25 10:59 120 MLS/HR Laboratory Results Laboratory Tests 03/14/25 07:30 Chemistry Test 03/14/25 00:20 03/14/25 07:30 Albumin 4.0 g/dL (3.2-4.8) 4.0 g/dL (3.2-4.8) Calcium Level 9.2 mg/dL (8.7-10.4) 8.7 mg/dL (8.7-10.4) Total Protein 6.7 g/dL (5.7-8.2) 6.6 g/dL (5.7-8.2) Coagulation Test 03/14/25 11:00 Prothrombin Time 10.0 sec (9.3-11.8) Prothrombin Time INR 0.94 (0.9-1.15) Activated Partial Thromboplast Time 21.1 SEC (24.5-34.5) L Lipid panel Test 03/14/25 00:20 Lipase 46 U/L (12-53) LFT Test 03/14/25 00:20 03/14/25 07:30 Alanine Aminotransferase (ALT) 899 U/L (7-40) H 903 U/L (7-40) H Alkaline Phosphatase 359 U/L (46-116) H 434 U/L (46-116) H Aspartate Amino Transferase (AST) 494 U/L (13-40) H 449 U/L (13-40) H Total Bilirubin 1.0 mg/dL (0.2-1.0) 1.2 mg/dL (0.2-1.0) H HgA1c, TSH Test 03/14/25 00:20 Hemoglobin A1c 4.8 % A1C (<5.7) Urinalysis Test 03/13/25 23:55 Urine Color Yellow (Yellow) Urine Clarity Clear (Clear) Urine pH 7.0 (5.0-9.0) Urine Specific [place] 1.015 (1.001-1.035) Urine Protein Negative (Negative) Urine Ketones Negative (Negative) Urine Blood 2+ /uL (Negative) H Urine Nitrite Negative (Negative) Urine Bilirubin Negative (Negative) Urine Urobilinogen Normal mg/dL (Negative) Urine Leukocyte Esterase Negative /uL (Negative) Urine RBC 13 /hpf (0 - 4) Urine Microscopic WBC < 1 /HPF (0-5) Urine Squamous Epithelial Cells Few /hpf (<5) Urine Bacteria Few /hpf (None Seen) H Urine Hyaline Casts Few /lpf (0 - 2) Urine Mucus Few (None Seen) Urine Yeast (Budding) Occasional /hpf (None Urine Glucose Normal mg/dL (Normal) Labs and/or images reviewed: Labs reviewed by me, Image(s) reviewed by me Assessment/Plan Assessment/Plan Acute right upper quadrant abdominal pain Gallstones possible cholecystitis: Levaquin Flagyl, surgical consult by Dr. Leal appreciated Dilated CBD: MRCP pending Acute dehydration: IV fluids Elevated liver enzymes possibly secondary to the CBD stone PCP: Charis Kitchen Time Spent 50 minutes Advanced care planning time 20 minutes Patient is full code Plan discussed with: Patient My Orders Orders - OUMOU WILHELM MD Procedure Category Date Status Time Levofloxacin Levaquin PHA 03/14/25 Transmitted 13:45 Levofloxacin Levaquin PHA 03/15/25 Transmitted 10:00 Date of Service: Mar 14, 2025 Billing Provider: OUMOU WILHELM MD Common Visit Codes: [id number] INP/OBS CARE(HIGH) Secondary Visit Codes: [id number] CARE PLAN 30 MINUTES OUMOU WILHELM MD Mar 14, 2025 13:48
[2025-03-15] VITALS (8 sets, daily range): BP systolic 124–143; BP diastolic 69–85; PULSE 53–65; RESP 16–20; TEMP 97.1–98.4; O2SAT 93–98
[2025-03-15 08:06] LABS: Hematocrit 38.5 % (36.0-46.0); Hemoglobin 13.3 g/dL (12.2-16.2); Mean Corpuscular Hemoglobin 33.1 pg (28.0-32.0); Mean Corpuscular Volume 95.9 fL (80.0-100.0); Nucleated Red Blood Cells % 0.1 %
[2025-03-15 08:21] LABS: Alanine Aminotransferase 510 U/L (7-40); Alkaline Phosphatase 291 U/L (46-116); Anion Gap 9 (5-15); BUN/Creatinine Ratio 12.2 (10.0-20.0); Blood Urea Nitrogen 9 mg/dL (9-23); Calcium 8.4 mg/dL (8.7-10.4); Carbon Dioxide 29 mmol/L (20-31); Chloride 105 mmol/L (98-107); Glucose 91 mg/dL (74-106); Potassium 3.9 mmol/L (3.5-5.1); Sodium 143 mmol/L (136-145); Total Protein 5.7 g/dL (5.7-8.2)
[2025-03-15 08:22] LABS: Albumin 3.4 g/dL (3.2-4.8); Bilirubin, Total 0.9 mg/dL (0.2-1.0)
--- NOTE | 2025-03-15 11:07 | DVH ---
CLINICAL INFORMATION: Dilated common bile duct. TECHNIQUE: Multisequence multiplanar MRI images of the abdomen were obtained without IV contrast. Silvina barron T2-weighted MRCP images were obtained. 3D MRCP images were created. COMPARISON: Ultrasound dated 03/14/2025. FINDINGS: There is a gallstone in the gallbladder measuring up to 2.2 cm. Common bile duct is dilated up to 1 cm in diameter. There is a 0.4 cm gallstone in the distal common bile duct. No other signif icant abnormality identified in the abdomen on limited noncontrast enhanced MRI images. IMPRESSION: 1. Cholelithiasis. 2. Choledocholithiasis with mildly dilated common bile duct.
--- NOTE | 2025-03-15 14:36 | DVHPN2 ---
Reviewed: Care Plan, H&P, Labs, Medications, Previous Orders, Radiology Changes from previous H/P or p: No Changes Eyes: No Pain, No Vision change, No Conjunctivae inflammation, No Eyelid inflammation, No Other, No Redness ENT: No Ear pain, No Ear discharge, No Nose pain, No Nose discharge, No Nose congestion, No Mouth pain, No Mouth swelling, No Throat pain, No Throat swelling, No Other Cardiovascular: No Chest Pain, No Palpitations, No Orthopnea, No Paroxysmal Noc. Dyspnea, No Edema, No Lt Headedness, No Other Respiratory: No Cough, No Dry, No Shortness of breath, No SOB with excertion, No Wheezing, No Hemoptysis, No Pleuritic Pain, No Sputum, No Other Gastrointestinal: Nausea, Vomiting, Abdominal Pain; No Diarrhea, No Constipation, No Melena, No Hematochezia, No Other Genitourinary: No Dysuria, No Frequency, No Incontinence, No Hematuria, No Retention, No Other Musculoskeletal: No other, No neck pain, No shoulder pain, No arm pain, No back pain, No hand pain, No leg pain, No foot pain Skin: No Rash, No Lesions, No Jaundice, No Bruising, No Other Objective Vitals Vital Signs Date Time Temp Pulse Resp B/P (MAP) Pulse Ox O2 Delivery O2 Flow Rate FiO2 03/15/25 13:00 97.7 61 18 135/72 (93) 97 97.7 03/15/25 08:00 Room Air* 0 21 Intake/Output Intake and Output 03/15/25 07:00 Intake Total 1860 ml Balance 1860 ml Intake Oral 360 ml IV Total 1500 ml # Voids 2 Medications Current Medications Medications Dose Ordered Sig/Leigh Route Start Time Stop Time Status Last Admin Dose Admin Hydromorphone HCl 0.5 mg Q4HPRN PRN IV 03/14/25 04:45 Metronidazole 100 ml @ 100 mls/hr Q8HR IV 03/14/25 06:00 03/15/25 05:45 100 MLS/HR Sodium Chloride 10 ml Q8HR IV 03/14/25 06:00 03/15/25 06:02 10 ML Acetaminophen/ Hydrocodone Bitart 1 tab Q4HP PRN PO 03/14/25 04:45 Ondansetron HCl 4 mg Q4HP PRN IV 03/14/25 04:45 03/14/25 10:39 4 MG Acetaminophen 650 mg Q6HP PRN PO 03/14/25 04:45 Nitroglycerin 0.4 mg Q5MINP PRN SL 03/14/25 04:45 Morphine Sulfate 2 mg Q30M PRN IV 03/14/25 04:45 Potassium Chloride/Dextrose/ Sod Cl 1,000 ml @ 120 mls/hr Q8H20M IV 03/14/25 10:15 03/15/25 11:34 120 MLS/HR Levofloxacin/ Dextrose 100 ml @ 100 mls/hr DAILY IV 03/15/25 10:00 03/15/25 09:30 100 MLS/HR Laboratory Results Laboratory Tests 03/15/25 07:04 Chemistry Test 03/15/25 07:04 Albumin 3.4 g/dL (3.2-4.8) Calcium Level 8.4 mg/dL (8.7-10.4) L Total Protein 5.7 g/dL (5.7-8.2) LFT Test 03/15/25 07:04 Alanine Aminotransferase (ALT) 510 U/L (7-40) H Alkaline Phosphatase 291 U/L (46-116) H Aspartate Amino Transferase (AST) 85 U/L (13-40) H Total Bilirubin 0.9 mg/dL (0.2-1.0) Urinalysis Test 03/13/25 23:55 Urine Color Yellow (Yellow) Urine Clarity Clear (Clear) Urine pH 7.0 (5.0-9.0) Urine Specific [place] 1.015 (1.001-1.035) Urine Protein Negative (Negative) Urine Ketones Negative (Negative) Urine Blood 2+ /uL (Negative) H Urine Nitrite Negative (Negative) Urine Bilirubin Negative (Negative) Urine Urobilinogen Normal mg/dL (Negative) Urine Leukocyte Esterase Negative /uL (Negative) Urine RBC 13 /hpf (0 - 4) Urine Microscopic WBC < 1 /HPF (0-5) Urine Squamous Epithelial Cells Few /hpf (<5) Urine Bacteria Few /hpf (None Seen) H Urine Hyaline Casts Few /lpf (0 - 2) Urine Mucus Few (None Seen) Urine Yeast (Budding) Occasional /hpf (None Urine Glucose Normal mg/dL (Normal) Labs and/or images reviewed: Labs reviewed by me, Image(s) reviewed by me Assessment/Plan Assessment/Plan Acute right upper quadrant abdominal pain Gallstones possible cholecystitis: Levaquin Flagyl, surgical consult by Dr. Leal appreciated Cholelithiasis, choledocholithiasis, mildly dilated CBD by MRCP Acute dehydration: IV fluids Elevated liver enzymes possibly secondary to the CBD stone PCP: Charis Kitchen Time Spent 50 minutes Advanced care planning time 20 minutes Patient is full code Plan discussed with: Patient Date of Service: Mar 15, 2025 Billing Provider: OUMOU WILHELM MD Common Visit Codes: [id number] INP/OBS CARE(HIGH) OUMOU WILHELM MD Mar 15, 2025 14:36
--- NOTE | 2025-03-15 17:22 | DVHPN2 ---
Subjective Date Seen: Mar 15, 2025 Post op day Post op day: 0 Objective Vitals Vital Sign Date Time Temp Pulse Resp B/P (MAP) Pulse Ox O2 Delivery O2 Flow Rate FiO2 03/15/25 13:00 97.7 61 18 135/72 (93) 97 97.7 03/15/25 08:00 Room Air* 0 21 Total Intake and Output 03/14/25 03/14/25 03/15/25 15:00 23:00 07:00 Intake Total 1460 ml 400 ml 0 ml Balance 1460 ml 400 ml 0 ml Medications Current Medications Medications Dose Ordered Sig/Leigh Route Start Time Stop Time Status Last Admin Dose Admin Hydromorphone HCl 0.5 mg Q4HPRN PRN IV 03/14/25 04:45 Metronidazole 100 ml @ 100 mls/hr Q8HR IV 03/14/25 06:00 03/15/25 14:55 100 MLS/HR Sodium Chloride 10 ml Q8HR IV 03/14/25 06:00 03/15/25 14:55 10 ML Acetaminophen/ Hydrocodone Bitart 1 tab Q4HP PRN PO 03/14/25 04:45 Ondansetron HCl 4 mg Q4HP PRN IV 03/14/25 04:45 03/15/25 15:04 4 MG Acetaminophen 650 mg Q6HP PRN PO 03/14/25 04:45 Nitroglycerin 0.4 mg Q5MINP PRN SL 03/14/25 04:45 Morphine Sulfate 2 mg Q30M PRN IV 03/14/25 04:45 Potassium Chloride/Dextrose/ Sod Cl 1,000 ml @ 120 mls/hr Q8H20M IV 03/14/25 10:15 03/15/25 11:34 120 MLS/HR Levofloxacin/ Dextrose 100 ml @ 100 mls/hr DAILY IV 03/15/25 10:00 03/15/25 09:30 100 MLS/HR Labs and Microbiology Laboratory Tests 03/15/25 07:04 Test 03/15/25 07:04 Range/Units Serum Glucose 91 74-106 mg/dL Ass/Plan Labs and/or images reviewed: Labs reviewed by me, Image(s) reviewed by me Assessment/Plan after review of MRCP report : Choledocholithiasis with mildly dilated common bile duct. and discussion with Dr. Gamboa patient will need higher level of care for an ERCP prior to a cholecystectomy I have informed the nurse caring for Mrs Moyer no surgery at this time please recall if needed Prognosis: Good Plan discussed with and Nurse Yuri Brar Visit Coding Surgery Date of Service if different f: Mar 15, 2025 Billing Provider: CARLOZ GAMBOA MD Surgery Visit Codes: [id number] - INP CONSULT <20 MIN TERRI COLLINS NP Mar 15, 2025 17:22
[2025-03-16 01:00] VITALS: BP 119/77; PULSE 59; RESP 20; TEMP 98.3; O2SAT 96
[2025-03-16 05:00] VITALS: BP 128/76; PULSE 53; RESP 18; TEMP 98.2; O2SAT 93
[2025-03-16 09:00] VITALS: BP 134/80; PULSE 60; RESP 17; TEMP 97.4; O2SAT 97
[2025-03-16 13:00] VITALS: BP 137/86; PULSE 63; RESP 17; TEMP 97.8; O2SAT 98
--- NOTE | 2025-03-16 13:37 | DVHPNRES ---
Progress Note Date Seen: Mar 16, 2025 Resident Creating Document: HIRO NOEL RESIDENT Has the PT tested + for MRSA If YES, has PT been informed?: No Medical Necessity Reason Pt with a Central, PICC or Fol: No Subjective Review of Systems This is a 44-year-old female with past medical history of hypothyroidism and hypertension. Patient presented to the ED with a chief complaint of acute abdominal pain. Patient reports that she has been experiencing abdominal cramps and acid reflux in the last month. Patient states that on the before coming to the ED the pain got worse in the right upper quadrant associated with nausea and vomiting. On admission gallbladder ultrasound was performed showing common bile duct dilation with possible mild early changes of cholecystitis. Initial labs showed elevated AST, ALT and alkaline phosphatase. MRCP was done showing choledocholithiasis wilth mild commmon bile duct dilation. Social service consult was placed to transfer patient to higher level of care for ERCP. Patient is currently asking if it is able to drink fluids, since patient is not going to be having any surgery at our institution, patient could resume clear liquid diet. Patient denies fever/chills, chest pain, shortness of breath or any other associated symptoms. ROS Constitutional: Denies weight loss, fever and chills. HEENT: Denies changes in vision and hearing. Respiratory: Denies shortness of breath and cough Cardiovascular: Denies chest discomfort or palpitations GI: Reports abdominal tenderness upon palpation to the right upper and lower quadrant. : Denies dysuria and urinary frequency. Musculoskeletal: Denies myalgias and joint pain Skin: Denies rash and pruritus. Neurological: Denies dizziness, headache, vision or hearing problems Objective vital signs Vital Sign Date Time Temp Pulse Resp B/P (MAP) Pulse Ox O2 Delivery O2 Flow Rate FiO2 03/16/25 09:00 97.4 60 17 134/80 (98) 97 97.4 03/15/25 20:00 Room Air* 0 21 Total Intake and Output 03/15/25 03/15/25 03/16/25 15:00 23:00 07:00 Intake Total 100 ml 1100 ml 200 ml Balance 100 ml 1100 ml 200 ml medications Current Medications Medications Dose Ordered Sig/Leigh Route Start Time Stop Time Status Last Admin Dose Admin Hydromorphone HCl 0.5 mg Q4HPRN PRN IV 03/14/25 04:45 Metronidazole 100 ml @ 100 mls/hr Q8HR IV 03/14/25 06:00 03/16/25 05:51 100 MLS/HR Sodium Chloride 10 ml Q8HR IV 03/14/25 06:00 03/16/25 05:56 10 ML Acetaminophen/ Hydrocodone Bitart 1 tab Q4HP PRN PO 03/14/25 04:45 Ondansetron HCl 4 mg Q4HP PRN IV 03/14/25 04:45 03/15/25 15:04 4 MG Acetaminophen 650 mg Q6HP PRN PO 03/14/25 04:45 Nitroglycerin 0.4 mg Q5MINP PRN SL 03/14/25 04:45 Morphine Sulfate 2 mg Q30M PRN IV 03/14/25 04:45 Potassium Chloride/Dextrose/ Sod Cl 1,000 ml @ 120 mls/hr Q8H20M IV 03/14/25 10:15 03/15/25 20:35 120 MLS/HR Levofloxacin/ Dextrose 100 ml @ 100 mls/hr DAILY IV 03/15/25 10:00 03/16/25 09:28 100 MLS/HR Examination Physical Examination General: Patient alert and oriented in person, place and time. No jaundice. Patient following commands. HEENT: Normocephalic, atraumatic, moist mucous membranes Respiratory/pulmonary: Clear lungs bilaterally, vesicular murmurs present in almost all lung jacob, no associated crackles or wheezes. Cardiovascular: Normal heart sounds S1 and S2 with no associated murmurs Abdomen: Abdomen nondistended, there is moderate tenderness to palpation at the right upper and lower quadrant. Extremities: There is no peripheral edema present at the lower extremities. Skin: No rashes or pruritus, there is no sacral edema present at this time. Neurological: Intact cranial nerves with no focal neurologic deficits laboratory and microbiology Laboratory Tests 03/15/25 07:04 Test 03/15/25 07:04 Range/Units Serum Glucose 91 74-106 mg/dL Problem List/Assessment/Plan Problem List/Assessment/Plan Assessment/Plan Acute abdominal pain likely due to acute choledocholithiasis Acute cholecystitis -gallbladder ultrasound was performed showing common bile duct dilation with possible early signs of cholecystitis -MRCP was performed confirming choledocholithiasis with mild common bile duct dilation. -initial AST and ALT were 494 and 899 respectively. Alkaline phosphatase was 359. Today AST ALT and alkaline phosphatase are slightly trending down. -surgery was consulted, which recommended to first get ERCP and get common bile duct stone removed before cholecystectomy -social service consult was placed for transfer to higher level of care for ERCP -currently on levofloxacin and metronidazole IV -pain medication as tolerated Hypothyroidism -Ordered TSH and FT4 -Resume armour thyroid mg daily Primary hypertention -Resume valsartan 160mg daily -monitor BP Goals of care discused with patient and at bedside, FULL CODE Plan discussed with Dr. Briones Plan discussed with: Patient My Orders My Orders Orders - HIRO NOEL Procedure Category Date Status Time * Magistrate Judge CONS 03/16/25 Transmitted Consult Dietary Evaluation Review Comments: 1) If patient remains NPO > 7 days, consider EN/TPN to meet at least 75% estimated daily needs 2) Advance to cardiac diet when medically feasible 3) Refer to outpatient RD for weight management 4) Follow-up with gastroenterology 5) Continue to monitor I&O, labs, and skin integrity Expected Outcomes/Goals: 1) patient to receive nutritional support within 7 days of NPO status 2) labs to improve 3) diet to advance 4) gradual wt loss 5) f/u in 3-5 days Date of Service: Mar 16, 2025 Billing Provider: TAVARES BRIONES MD Common Visit Codes: [id number] INP/OBS CARE(HIGH) HIRO NOEL Mar 16, 2025 13:37
[2025-03-16 15:00] LABS: Triglycerides 171 mg/dL (< 150)
[2025-03-16 15:02] LABS: HDL Cholesterol 47 mg/dL (40-59)
[2025-03-16 15:05] LABS: Cholesterol 212 mg/dL (< 200)
[2025-03-16 17:00] VITALS: BP 125/79; PULSE 60; RESP 17; TEMP 97.6; O2SAT 98
[2025-03-16 21:00] VITALS: BP 133/82; PULSE 60; RESP 16; TEMP 98; O2SAT 94
[2025-03-17 01:00] VITALS: BP 105/65; PULSE 60; RESP 20; TEMP 97.7; O2SAT 95
[2025-03-17 05:00] VITALS: BP 121/75; PULSE 57; RESP 19; TEMP 98.1; O2SAT 95
[2025-03-17] MEDS ORDERED: ERGOCALCIFEROL 50,000 UNIT(1.25MG) CAP PO SCH (05:15)
[2025-03-17] MEDS: THYROID 60 MG TAB PO SCH (06:00)
[2025-03-17 07:58] LABS: Hematocrit 41.2 % (36.0-46.0); Hemoglobin 14.5 g/dL (12.2-16.2); Mean Corpuscular Hemoglobin 33.3 pg (28.0-32.0); Mean Corpuscular Volume 94.6 fL (80.0-100.0); Nucleated Red Blood Cells % 0.0 %
[2025-03-17 08:09] LABS: Albumin 3.8 g/dL (3.2-4.8); Anion Gap 8 (5-15); BUN/Creatinine Ratio 10.7 (10.0-20.0); Bilirubin, Total 0.7 mg/dL (0.2-1.0); Carbon Dioxide 30 mmol/L (20-31); Chloride 103 mmol/L (98-107); Glucose 101 mg/dL (74-106); Potassium 3.8 mmol/L (3.5-5.1); Sodium 141 mmol/L (136-145); Total Protein 6.3 g/dL (5.7-8.2)
[2025-03-17 08:10] LABS: Alanine Aminotransferase 310 U/L (7-40); Alkaline Phosphatase 227 U/L (46-116); Blood Urea Nitrogen 8 mg/dL (9-23); Calcium 8.6 mg/dL (8.7-10.4)
[2025-03-17 09:00] VITALS: BP 116/74; PULSE 58; RESP 16; TEMP 97.8; O2SAT 94
[2025-03-17] MEDS: VALSARTAN 80 MG TAB PO SCH (10:35)
--- NOTE | 2025-03-17 11:59 | DVHDSRES ---
Discharge Summary Date of Admission Resident Creating Document: HIRO NOEL RESIDENT Mar 14, 2025 at 04:35 Date of Discharge: Mar 17, 2025 Admitting Diagnosis Acute abdominal pain poss cholecystitis Wounds: No wounds Present at this time. Labs/Diagnostic Data: Laboratory Results Test 03/17/25 07:30 03/16/25 14:19 03/14/25 11:00 03/14/25 00:20 White Blood Count 4.4 10^3/uL (4.4-10.8) Red Blood Count 4.36 10^6/uL (4.0-5.20) Hemoglobin 14.5 g/dL (12.2-16.2) Hematocrit 41.2 % (36.0-46.0) Mean Corpuscular Volume 94.6 fL (80.0-100.0) Mean Corpuscular Hemoglobin 33.3 pg (28.0-32.0) Mean Corpuscular Hemoglobin Concent 35.2 g/dL (32.0-36.0) Red Cell Distribution Width 12.5 % (11.8-14.3) Platelet Count 164 10^3/uL (140-450) Mean Platelet Volume 6.2 fL (6.9-10.8) Neutrophils (%) (Auto) 67.5 % (37.0-80.0) Lymphocytes (%) (Auto) 19.4 % (10.0-50.0) Monocytes (%) (Auto) 9.5 % (0.0-12.0) Eosinophils (%) (Auto) 2.9 % (0.0-7.0) Basophils (%) (Auto) 0.7 % (0.0-2.0) Neutrophils # (Auto) 3.0 10 ^3/uL (1.6-8.6) Lymphocytes # (Auto) 0.9 10 ^3/uL (0.4-5.4) Monocytes # (Auto) 0.4 10 ^3/uL (0-1.3) Eosinophils # (Auto) 0.1 10 ^3/uL (0-0.8) Basophils # (Auto) 0 10 ^3/uL (0-0.2) Nucleated Red Blood Cells 0.0 % Sodium Level 141 mmol/L (136-145) Potassium Level 3.8 mmol/L (3.5-5.1) Chloride Level 103 mmol/L (98-107) Carbon Dioxide Level 30 mmol/L (20-31) Anion Gap 8 (5-15) Blood Urea Nitrogen 8 mg/dL (9-23) Creatinine 0.75 mg/dL (0.550-1.02) Glomerular Filtration Rate Calc 93 mL/min (>90) BUN/Creatinine Ratio 10.7 (10.0-20.0) Serum Glucose 101 mg/dL (74-106) Calcium Level 8.6 mg/dL (8.7-10.4) Total Bilirubin 0.7 mg/dL (0.2-1.0) Aspartate Amino Transferase (AST) 57 U/L (13-40) Alanine Aminotransferase (ALT) 310 U/L (7-40) Alkaline Phosphatase 227 U/L (46-116) Total Protein 6.3 g/dL (5.7-8.2) Albumin 3.8 g/dL (3.2-4.8) Triglycerides Level 171 mg/dL (< 150) Cholesterol Level 212 mg/dL (< 200) LDL Cholesterol 134 mg/dL (< 100) HDL Cholesterol 47 mg/dL (40-59) Vitamin D 25-Hydroxy 25.8 ng/mL (30.0-100) Thyroid Stimulating Hormone (TSH) 0.01 uIU/mL (0.55-4.78) Free Thyroxine (T4) Calculated 0.73 ng/dL (0.89-1.76) Prothrombin Time 10.0 sec (9.3-11.8) Prothrombin Time INR 0.94 (0.9-1.15) Activated Partial Thromboplast Time 21.1 SEC (24.5-34.5) Hemoglobin A1c 4.8 % A1C (<5.7) Lipase 46 U/L (12-53) Test 03/13/25 23:55 Urine Color Yellow (Yellow) Urine Clarity Clear (Clear) Urine pH 7.0 (5.0-9.0) Urine Specific [place] 1.015 (1.001-1.035) Urine Protein Negative (Negative) Urine Ketones Negative (Negative) Urine Blood 2+ /uL (Negative) Urine Nitrite Negative (Negative) Urine Bilirubin Negative (Negative) Urine Urobilinogen Normal mg/dL (Negative) Urine Leukocyte Esterase Negative /uL (Negative) Urine RBC 13 /hpf (0 - 4) Urine Microscopic WBC < 1 /HPF (0-5) Urine Squamous Epithelial Cells Few /hpf (<5) Urine Bacteria Few /hpf (None Seen) Urine Hyaline Casts Few /lpf (0 - 2) Urine Mucus Few (None Seen) Urine Yeast (Budding) Occasional /hpf (None Urine Glucose Normal mg/dL (Normal) Other Laboratory Tests 03/17/25 07:30 Brief Hx & Hospital Course: This is a 44-year-old female with past medical history of hypothyroidism and hypertension. Patient presented to the ED with a chief complaint of acute abdominal pain. Patient reports that she has been experiencing abdominal cramps and acid reflux in the last month. Patient states that on the before coming to the ED the pain got worse in the right upper quadrant associated with nausea and vomiting. On admission gallbladder ultrasound was performed showing common bile duct dilation with possible mild early changes of cholecystitis. Initial labs showed elevated AST, ALT and alkaline phosphatase. MRCP was done showing choledocholithiasis wilth mild commmon bile duct dilation. Social service consult was placed to transfer patient to higher level of care for ERCP. Social service consult was placed to transfer the patient to higher level of care for ERCP. Peer to peer was done with GI specialist and hospitalist at [facility]. Patient will be discharged to [facility] for further ERCP. Currently pending authorization from [facility]. ROS Constitutional: Denies weight loss, fever and chills. HEENT: Denies changes in vision and hearing. Respiratory: Denies shortness of breath and cough Cardiovascular: Denies chest discomfort or palpitations GI: Reports abdominal tenderness in the right upper quadrant upon palpation : Denies dysuria and urinary frequency. Musculoskeletal: Denies myalgias and joint pain Skin: Denies rash and pruritus. Neurological: Denies dizziness, headache, vision or hearing problems Physical Examination General: Patient alert and oriented in person, place and time. No jaundice. Patient following commands. HEENT: Normocephalic, atraumatic, moist mucous membranes Respiratory/pulmonary: Clear lungs bilaterally, vesicular murmurs present in almost all lung jacob, no associated crackles or wheezes. Cardiovascular: Normal heart sounds S1 and S2 with no associated murmurs Abdomen: Abdomen nondistended, there is moderate tenderness to palpation at the right upper and lower quadrant. Extremities: There is no peripheral edema present at the lower extremities. Skin: No rashes or pruritus, there is no sacral edema present at this time. Neurological: Intact cranial nerves with no focal neurologic deficits Consults/Reason for consult Sx for chlecystectomy Operations or Procedures INDICATION: RUQ pain TECHNIQUE: Multiple real-time sonographic images were obtained of the right upper quadrant. COMPARISON: None FINDINGS: Liver is enlarged measuring 19.3 cm with moderate diffuse fatty infiltration. There is no intrahepatic or extrahepatic ductal dilatation. CBD is dilated measuring 1.2 cm. Gallstone in the gallbladder. Borderline gallbladder distention. Gallbladder wall is mildly thickened measuring 0.5 cm. No surrounding edema. Sonographic leos's sign is positive. The right kidney measures 10.0 cm. The right kidney is normal in contour, size, and shape. The echogenicity is normal. There is no hydronephrosis. The pancreas is not well visualized due to overlying bowel gas. IMPRESSION: CBD is dilated. MRCP would be beneficial to exclude a distal obstructing calculus. Gallstones with gallbladder distension and borderline gallbladder wall thickening but no significant surrounding edema. This could represent early acute cholecystitis. Close follow-up recommended. CLINICAL INFORMATION: Dilated common bile duct. TECHNIQUE: Multisequence multiplanar MRI images of the abdomen were obtained without IV contrast. Heavily T2-weighted MRCP images were obtained. 3D MRCP images were created. COMPARISON: Ultrasound dated 03/14/2025. FINDINGS: There is a gallstone in the gallbladder measuring up to 2.2 cm. Common bile duct is dilated up to 1 cm in diameter. There is a 0.4 cm gallstone in the distal common bile duct. No other significant abnormality identified in the abdomen on limited noncontrast enhanced MRI images. IMPRESSION: 1. Cholelithiasis. 2. Choledocholithiasis with mildly dilated common bile duct. Condition at Discharge: Stable Final Diagnosis/Problems List Acute abdominal pain likely due to acute choledocholithiasis Acute cholecystitis Hypothyroidism Primary hypertention Discharge Disposition: Acute Care Facility Discharge Instruct/Medications Diet: See Comment Diet comment: clear liquids as tolerated Activity: No Restrictions, As Tolerated Follow Up/Referral: F/U with her PCP 1 week after discharge from [place]. Medications: continue meds on transfer Scheduled Escitalopram Oxalate (Lexapro), 1 TAB PO DAILY, (Reported) Valsartan (Diovan), Unknown Dose PO DAILY, (Reported) Miscellaneous Medications Thyroid ([place] Thyroid), 120 MG PO, (Reported) Discharge Statement: "Patient was advised to return to the ER or call 911 if any headaches, dizziness, shortness of breath, chest pain, abdominal pain, bleeding, fevers, or worsening of medical condition. Patient was counseled about treatment plan, medications, possible side effects, patientverbalized understanding. All questions were answered to the best of my ability. This discharge took greater then 30 minutes in planning, reviewing documentation, counseling the patient, and discussing with other team members." ASSESSMENT ASSESSMENT Assessment Acute abdominal pain likely due to acute choledocholithiasis Acute cholecystitis Hypothyroidism Primary hypertention Date of Service: Mar 17, 2025 Billing Provider: TAVARES BRIONES MD Common Visit Codes: 28030-AKR/OBS DISCH DAY >30min HIRO NOEL RESIDENT Mar 17, 2025 11:59 TAVARES BRIONES MD Mar 17, 2025 17:06
[2025-03-17 13:00] VITALS: BP 134/62; PULSE 62; RESP 17; TEMP 97.7; O2SAT 96
== END 2025-03-17 16:27 | disposition short-term general hospital (02) | DRG 446 ==
LOC: ER 23:43 → OVERFLOW 03-14 04:35 → WEST WING 03-14 12:16
PROVIDERS: ADMIT Internal Medicine; ATTEND Internal Medicine
DX: K80.62 Calculus of gallbladder and bile duct with acute cholecystitis without obstruction (principal); E86.0 Dehydration; R73.9 Hyperglycemia, unspecified; R74.8 Abnormal levels of other serum enzymes; K83.8 Other specified diseases of biliary tract; I10 Essential (primary) hypertension; E03.9 Hypothyroidism, unspecified; Z88.0 Allergy status to penicillin
CPT/HCPCS: 36415; 74181; 76705; 80053; 80061; 81001; 82306; 83036; 83690; 84439; 84443; 85025; 85610; 85730; 86850; 86900; 86901; 99291; G0378; J1956; J2405; J2543; J3490